=== PATIENT | male | born 1955 | race Caucasian/White ===

== ENCOUNTER 2018-06-09 10:00 | Outpatient (CLI) ==
--- NOTE | 2018-06-09 18:10 | MRI ---
EXAM: Lumbar spine MRI without contrast. HISTORY: Back pain. COMPARISON: None. TECHNIQUE: Multiplanar, multisequence MR images were acquired of the lumbar spine without contrast. FINDINGS: Five non-rib bearing lumbar vertebra are present. Conus medullaris ends at L1 and has nor mal morphology and signal intensity. Canal diameter is developmentally narrow and there is dorsal ep idural lipomatosis. The lumbar vertebra are normal in height, AP alignment and intrinsic bone marrow signal. There is mild loss of the usual smooth lumbar lordosis with a trace retrolisthesis of L1 on L2, L2 on L3 by three on L4 and 1.5 mm retrolisthesis of L4 on L5 and 5 mm retrolisthesis of L5 on S 1. At L1-2, there is a diffuse spondylotic disc bulge with moderately large broad-based left anterio r endplate osteophytes, mild anterior endplate irregularity and moderate type 2 endplate changes. At L2-3, there is a diffuse spondylotic disc bulge that is asymmetric to the left with small broad-base d left far lateral endplate osteophytes and mild to moderate left lateral and posterior disc desiccat ion with endplate irregularity, small chronic Schmorl's nodes and focal mild type 1 left posterolater al endplate changes. At L4-5 and L5-S1, there is a moderate diffuse disc osteophyte complex with mar ked disc space narrowing, mild diffuse endplate irregularity and small chronic Schmorl's nodes and ex tensive anterior and bilateral lateral type 2 endplate changes at L4-5 and mild bilateral anterolater al type 2 endplate changes at L5-S1. The partially visualized left kidney has a simple cyst. The ri ght is unremarkable. There are no paravertebral masses. Bridging osteophytes are present along both anterior sacroiliac joints, larger on the right. L1-2: There is retrolisthesis of L1 on L2 and a diffuse disc bulge and mild bilateral hypertrophic f acet arthropathy and ligamentum flavum hypertrophy with tiny bilateral facet effusions. There is jihan alhaji epidural lipomatosis and these findings cause mild to moderate central canal stenosis and bilater al foraminal stenosis. AP diameter of the thecal sac is 7.2 mm. L2-3: There is a diffuse spondylotic disc bulge and moderately severe bilateral hypertrophic facet a rthropathy and ligamentum flavum hypertrophy. A crescentic T2 hyperintensity is present along the an terior right facet joint which measures 2.4 mm AP by 13.5 mm TX by 5 mm CC. This narrows the posteri or superior right neural foramen and may represent a small synovial cyst or perineural cyst. There i s a mildly prominent chronic Schmorl's node along the left posterior L3 superior endplate with focal bright STIR signal in the Schmorl's node and adjacent disc that may represent a more recent Schmorl's node formation. There is a dorsal epidural lipomatosis and these findings cause moderate spinal jenny nosis and moderate right and mild-moderate left neural foraminal stenosis. AP diameter of the thecal sac is 5 mm. L3-4: There is a mild spondylotic disc bulge and moderate bilateral hypertrophic facet arthropathy a nd ligamentum flavum hypertrophy. Dorsal epidural lipomatosis is present and there is mild to modera te spinal stenosis and mild bilateral foraminal stenosis. AP diameter of the thecal sac is 7.5 mm. L4-5: There is a moderate diffuse disc osteophyte complex with a more focal midline component and a superimposed moderate central disc extrusion with a small ossification in the annulus that extends be low the disc level and effaces the ventral thecal sac. Bilateral facet and ligamentum flavum hypertr ophy is present and there is dorsal epidural lipomatosis. This causes mild to moderate central canal stenosis, bilateral lateral recess stenosis with encroachment on the L5 nerve roots and mild to mode rate bilateral foraminal stenosis, greater on the right. AP diameter of the thecal sac is 7 mm. L5-S1: There is a moderate diffuse disc osteophyte complex with a more focal midline component and s uperimposed moderate central and right posterolateral disc extrusion with extension of the right post erolateral component of the disc herniation below the disc level. This causes right lateral recess s tenosis with encroachment on the descending right S1 nerve, encroachment on the left S1 nerve and mil d to moderate left and moderately severe right neural foraminal stenosis with compression of the righ t L5 nerve. There is no central canal stenosis. IMPRESSION: 1. Moderately extensive lumbar degenerative spondylosis which in this patient with a developmentally narrow canal and dorsal epidural lipomatosis causes mild to moderate L1-2, L3-4 and L4-5 and moderat e L2-3 central canal stenosis. 2. Moderate central disc extrusion L4-5 and moderate central right posterolateral disc extrusion L5- S1. 3. Multilevel foraminal stenosis.
== END 2018-06-09 10:01 | disposition home or self-care (01) ==
LOC: RAD 10:00
PROVIDERS: ATTEND Family Medicine
DX: M54.16 Radiculopathy, lumbar region (principal); M54.9 Dorsalgia, unspecified; G89.29 Other chronic pain